=== PATIENT | male | born 1975 | race African-American/Black ===

== ENCOUNTER 2016-04-14 10:20 | Emergency (ER) | payer MEDICAID ==
[~2016-04-14] VITALS: Ht 172.7 cm; Wt 89.0 kg
[~2016-04-14 10:20] MED LIST: DULO20CA30 PO; QUET200T PO
[2016-04-14] MEDS ORDERED: LISI-662 PO (10:27)
[2016-04-14] MEDS ORDERED: FLUO-191 PO (10:27)
[2016-04-14 10:36] LABS: GLUCOSE,POINT OF CARE 99 MG/DL (70-110)
[2016-04-14] MEDS ORDERED: SUMAtriptan SUCCINATE 25 MG TABLET PO ONE (11:30)
[2016-04-14 12:10] VITALS: BP 169/109
== END 2016-04-14 12:13 | disposition home or self-care (01) ==
LOC: EMS 10:22
DX: G43.909 Migraine, unspecified, not intractable, without status migrainosus (principal); R11.0 Nausea; H53.149 Visual discomfort, unspecified; I10 Essential (primary) hypertension
CPT/HCPCS: 82962; 99283